=== PATIENT | male | born 1965 | race American Indian/Alaskan Native ===

== ENCOUNTER 2017-05-22 13:23 | Emergency (ER) | payer OTHER ==
[2017-05-22 14:49] VITALS: BP 148/97; PULSE 68; RESP 18; TEMP 97.7; O2SAT 98
--- NOTE | 2017-05-22 17:21 | C.PDOC ---
History Of Present Illness 52 year old male presents to the ED c/o itchy rash to B/L hands mostly located in his finger and palms for the past 2 weeks. Patient states symptoms started after using exterminating chemicals while wearing gloved. Patient reports using hydrocortisone with no improvement. Patient denies fever, chills, nausea, vomit , diarrhea. Time Seen by Provider: 05/22/17 15:16 Chief Complaint (Nursing): Abnormal Skin Integrity History Per: Patient History/Exam Limitations: no limitations Onset/Duration Of Symptoms: Days Current Symptoms Are (Timing): Still Present Location Of Injury: Right: Hand, Left: Hand Quality Of Symptoms: Itching Recent travel outside of the [place]: No Additional History Per: Patient Past Medical History Reviewed: Historical Data, Nursing Documentation, Vital Signs Vital Signs: Last Vital Signs Temp 97.7 F 05/22/17 14:46 Pulse 68 05/22/17 14:46 Resp 18 05/22/17 14:46 BP 148/97 H 05/22/17 14:46 Pulse Ox 98 05/22/17 17:28 - Medical History PMH: No Chronic Diseases Surgical History: No Surg Hx Family History: States: Unknown Family Hx - Social History Hx Tobacco Use: No Hx Alcohol Use: No Hx Substance Use: No - Immunization History Hx Tetanus Toxoid Vaccination: No Hx Influenza Vaccination: No Hx Pneumococcal Vaccination: No Review Of Systems Constitutional: Negative for: Fever, Chills ENT: Negative for: Mouth Swelling, Throat Swelling Respiratory: Negative for: Shortness of Breath Skin: Positive for: Rash Neurological: Negative for: Weakness, Numbness Physical Exam - Physical Exam Appears: Non-toxic, No Acute Distress Skin: Normal Color, Warm, Dry, Rash (firm itchy nodules 3-4 mm scattered on B/L palsm. Scaly crusty areas that extend from base of fingers to proximal medial phalanges and in between fingers) Head: Atraumatic, Normacephalic Eye(s): bilateral: Normal Inspection Tongue: No Swelling Lips: No Swelling Extremity: Normal ROM, No Tenderness, Capillary Refill (< 2 seconds), No Swelling Pulses: Left Radial: Normal, Right Radial: Normal Neurological/Psych: Oriented x3, Normal Motor, Normal Sensation Gait: Steady ED Course And Treatment O2 Sat by Pulse Oximetry: 98 (ON RA) Pulse Ox Interpretation: Normal Medical Decision Making Medical Decision Making: Impression: rash Patient's rash is probably done due to allergic reaction to gloves or chemicals used during his job. Disposition Counseled Patient/Family Regarding: Diagnosis, Need For Followup, Rx Given - Disposition Referrals: [facility] [Outside] Disposition: HOME/ ROUTINE Disposition Time: 17:19 Condition: GOOD Additional Instructions: Please do not use rubber gloves or chemicals on hands that you used prior to rash. Use creams as prescribed. Follow up in medical clinic next week. Return to ER for anything worsening. Prescriptions: Clotrimazole 1% Cream [Lotrimin 1% CREAM] 1 applic TOP BID #1 tube Mupirocin 2% Cream [Bactroban Cream] 30 applic EXT BID #1 tube Instructions: Contact Dermatitis (DC) Forms: [facility] (Uzbek), General Discharge Instructions - Clinical Impression Clinical Impression: Contact dermatitis - PA / [employer] / Resident Statement MD/DO has reviewed & agrees with the documentation as recorded. - Scribe Statement The provider has reviewed the documentation as recorded by the Scribe Enrique Miller All medical record entries made by the Scribe were at my direction and personally dictated by me. I have reviewed the chart and agree that the record accurately reflects my personal performance of the history, physical exam, medical decision making, and the department course for this patient. I have also personally directed, reviewed, and agree with the discharge instructions and disposition.
== END 2017-05-22 17:45 | disposition home or self-care (01) ==
LOC: C.ER 13:23
DX: L25.9 Unspecified contact dermatitis, unspecified cause (principal)